=== PATIENT | male | born 1950 | race Hispanic/Latino ===

== ENCOUNTER 2023-10-09 07:02 | Emergency (ER) | payer OTHER ==
[~2023-10-09] VITALS: Ht 167.6 cm; Wt 73.5 kg
[~2023-10-09 07:02] MED LIST: APIX5TAB PO; ATOR10 PO; LOSA50TA64 PO
[2023-10-09 07:42] LABS: BASOPHILS # (AUTO) 0.03 K/uL (0.00-0.20); BASOPHILS % (AUTO) 0.3 % (0.0-5.0); EOSINOPHILS # (AUTO) 0.09 K/uL (0.00-0.70); EOSINOPHILS % (AUTO) 0.9 % (0.0-8.0); HEMATOCRIT 47.4 % (42-54); IMMATURE GRANULOCYTE ABSOLUTE 0.03 K/uL (0-1); LYMPHOCYTES # (AUTO) 1.1 K/uL (1.0-4.8); LYMPHOCYTES % (AUTO) 11.2 % (21.0-51.0); MEAN CORPUSCULAR HEMOGLOBIN 31.9 pg (27.0-33.0); MEAN CORPUSCULAR VOLUME 93.9 fL (79-99); MONOCYTES # (AUTO) 1.1 K/uL (0.1-1.0); MONOCYTES % (AUTO) 10.9 % (3.0-13.0); NEUTROPHILS # (AUTO) 7.5 K/uL (1.8-7.7); NEUTROPHILS % (AUTO) 76.4 % (40.0-77.0); PLATELET COUNT (AUTO) 171 K/uL (130-400); RED BLOOD CELL COUNT(AUTO) 5.05 MIL/uL (4.50-6.20); RED CELL DISTRIBUTION WIDTH 13.1 % (11.0-15.5); WHITE BLOOD COUNT (AUTO) 9.8 K/uL (4.8-10.8)
[2023-10-09 07:51] LABS: ALBUMIN 3.4 g/dL (3.5-5.0); CREATININE 0.9 mg/dL (0.5-1.3)
[2023-10-09 07:56] LABS: BILIRUBIN,TOTAL 1.4 mg/dL (0.2-1.0); TOTAL PROTEIN, SERUM 7.2 g/dL (6.0-8.3)
[2023-10-09] MEDS: ONDANSETRON 4MG INJ IVP ONE (09:41)
[2023-10-09] MEDS: MORPHINE 4 MG SYG IVP ONE ×2 (09:41→15:08)
[2023-10-09] MEDS: NS-20 MEQ KCL 1000ML 1,000 ML IV ONE (09:41)
[2023-10-09 10:09] LABS: APPEARANCE,URINE CLEAR (CLEAR); BILIRUBIN,URINE NEGATIVE (NEGATIVE); COLOR,URINE YELLOW (YELLOW); GLUCOSE, URINE (UA) NEGATIVE (NEGATIVE); KETONES,URINE 20 mg/dL (NEGATIVE); LEUKOCYTE ESTERASE ,URINE NEGATIVE Leu/uL (NEGATIVE); NITRATE,URINE NEGATIVE (NEGATIVE); OCCULT BLOOD,URINE NEGATIVE (NEGATIVE); PH,URINE 5.5 (5.0-8.0); PROTEIN,URINE 20 mg/dL (NEGATIVE); UROBILINOGEN,URINE 0.2 mg/dL (0.2-1.0)
[2023-10-09 10:11] LABS: ADD UA MICROSCOPIC YES
[2023-10-09 10:13] LABS: BACTERIA,URINE RARE /HPF (None Seen); MUCUS,URINE RARE LPF (None Seen); RBC,URINE 0-1 /HPF (0-1)
[2023-10-09] MEDS ORDERED: IOHEXOL-350 75 ML VIAL IV ONE (13:39)
[2023-10-09] MEDS: METOCLOPRAMIDE 10 MG/2 ML VIAL IVP ONE (14:48)
[2023-10-09] MEDS ORDERED: POTA-192 PO (15:43)
[2023-10-09] MEDS ORDERED: ONDA-243 PO (15:43)
[2023-10-09] MEDS ORDERED: POLY17PO4 PO (15:43)
[2023-10-09 17:05] VITALS: BP 133/78; PULSE 93; RESP 15; O2SAT 92
== END 2023-10-09 17:06 | disposition home or self-care (01) ==
LOC: EDH 07:02
DX: K59.00 Constipation, unspecified (principal); G89.18 Other acute postprocedural pain; E87.6 Hypokalemia; E78.00 Pure hypercholesterolemia, unspecified; I10 Essential (primary) hypertension; Z90.49 Acquired absence of other specified parts of digestive tract
CPT/HCPCS: 99285; 74177; 96374; 96375; 96361; 80053; 85025; 81001; 36415; 96376; J2405; J2270 ×2; J3480; J2765; Q9967